=== PATIENT | female | born 1985 | race American Indian/Alaskan Native ===

== ENCOUNTER 2017-12-26 20:57 | Emergency (ER) | payer SELFPAY ==
[2017-12-26 21:13] VITALS: BP 112/73
--- NOTE | 2017-12-26 21:44 | Emergency Department Report ---
ED ENT HPI - General Chief complaint: Sore Throat Stated complaint: SWOLLEN THROAT PAIN, BURING Time Seen by Provider: 12/26/17 21:36 Source: patient Mode of arrival: Ambulatory Limitations: No Limitations - History of Present Illness Initial comments: 32-year-old female past medical history none presents with complaint of sore throat for 2 days. Patient has visible plaques in back of throat. Speaking in full sentences no trismus no drooling no shortness of breath. Slight nonproductive cough. Patient is fully lucid awake alert and oriented 3 nontoxic appearing. MD complaint: sore throat Onset/Timin -: days(s) Location: throat Severity: moderate Quality: aching Worsens with: none Associated Symptoms: sore throat - Related Data Previous Rx's Medication Instructions Recorded Last Taken Type Clindamycin [Clindamycin CAP] 300 mg PO Q6H #28 capsule 12/26/17 Unknown Rx Dextromethorphan/Benzocaine 1 each PO Q4H PRN #1 box 12/26/17 Unknown Rx [Cepacol Sorethroat-Cough Eusebio] Ibuprofen [Motrin] 600 mg PO Q8H PRN #20 tablet 12/26/17 Unknown Rx Allergies Allergy/AdvReac Type Severity Reaction Status Date / Time Penicillins Allergy Hives Verified 12/26/17 21:13 ED Dental HPI - General Chief complaint: Sore Throat Stated complaint: SWOLLEN THROAT PAIN, BURING Time Seen by Provider: 12/26/17 21:36 Source: patient Mode of arrival: Ambulatory Limitations: No Limitations - Related Data Previous Rx's Medication Instructions Recorded Last Taken Type Clindamycin [Clindamycin CAP] 300 mg PO Q6H #28 capsule 12/26/17 Unknown Rx Dextromethorphan/Benzocaine 1 each PO Q4H PRN #1 box 12/26/17 Unknown Rx [Cepacol Sorethroat-Cough Eusebio] Ibuprofen [Motrin] 600 mg PO Q8H PRN #20 tablet 12/26/17 Unknown Rx Allergies Allergy/AdvReac Type Severity Reaction Status Date / Time Penicillins Allergy Hives Verified 12/26/17 21:13 ED Review of Systems ROS: Stated complaint: SWOLLEN THROAT PAIN, BURING Other details as noted in HPI Constitutional: denies: chills, fever Eyes: denies: eye pain, eye discharge, vision change ENT: throat pain. denies: ear pain Respiratory: denies: cough, shortness of breath, wheezing Cardiovascular: denies: chest pain, palpitations Endocrine: no symptoms reported Gastrointestinal: denies: abdominal pain, nausea, diarrhea Genitourinary: denies: urgency, dysuria, discharge Musculoskeletal: denies: back pain, joint swelling, arthralgia Skin: denies: rash, lesions Neurological: denies: headache, weakness, paresthesias Psychiatric: denies: anxiety, depression Hematological/Lymphatic: denies: easy bleeding, easy bruising ED Past Medical Hx - Past Medical History Previous Medical History?: No - Surgical History Past Surgical History?: No - Social History Smoking Status: Never Smoker Substance Use Type: None - Medications Home Medications: Home Medications Medication Instructions Recorded Confirmed Last Taken Type Clindamycin [Clindamycin CAP] 300 mg PO Q6H #28 capsule 12/26/17 Unknown Rx Dextromethorphan/Benzocaine 1 each PO Q4H PRN #1 box 12/26/17 Unknown Rx [Cepacol Sorethroat-Cough Eusebio] Ibuprofen [Motrin] 600 mg PO Q8H PRN #20 tablet 12/26/17 Unknown Rx ED Physical Exam - General Limitations: No Limitations General appearance: alert, in no apparent distress - Head Head exam: Present: atraumatic, normocephalic - Eye Eye exam: Present: normal appearance, PERRL, EOMI - ENT ENT exam: Present: mucous membranes moist - Expanded ENT Exam Expanded Throat exam: Positive: tonsillar erythema, tonsillar exudate - Neck Neck exam: Present: normal inspection - Respiratory Respiratory exam: Present: normal lung sounds bilaterally. Absent: respiratory distress - Cardiovascular Cardiovascular Exam: Present: regular rate, normal rhythm. Absent: systolic murmur, diastolic murmur, rubs, gallop - GI/Abdominal GI/Abdominal exam: Present: soft, normal bowel sounds - Extremities Exam Extremities exam: Present: normal inspection - Back Exam Back exam: Present: normal inspection - Neurological Exam Neurological exam: Present: alert, oriented X3 - Psychiatric Psychiatric exam: Present: normal affect, normal mood - Skin Skin exam: Present: warm, dry, intact, normal color. Absent: rash ED Course Vital Signs 12/26/17 21:08 Temperature 99.9 F H Pulse Rate 86 Respiratory 16 Rate Blood Pressure 112/73 O2 Sat by Pulse 98 Oximetry ED Medical Decision Making - Medical Decision Making A/P: Tonsillitis 1-Motrin when necessary, throat lozenges when necessary 2-follow-up with primary care doctor 3- 4- Critical care attestation.: If time is entered above; I have spent that time in minutes in the direct care of this critically ill patient, excluding procedure time. ED Disposition Clinical Impression: Tonsillitis Disposition: TO HOME OR SELFCARE Is pt being admited?: No Does the pt Need Aspirin: No Condition: Stable Instructions: Tonsillitis (ED) Prescriptions: Clindamycin [Clindamycin CAP] 300 mg PO Q6H #28 capsule Dextromethorphan/Benzocaine [Cepacol Sorethroat-Cough Eusebio] 1 each PO Q4H PRN #1 box PRN Reason: Sore Throat Ibuprofen [Motrin] 600 mg PO Q8H PRN #20 tablet PRN Reason: Pain Referrals: PRIMARY CAREMD [Primary Care Provider] - 3-5 Days [facility] [Provider Group] - 3-5 Days Forms: Work/School Release Form(ED) Time of Disposition: 22:13
[2017-12-26] MEDS ORDERED: DECADRON IM ONE (22:15)
== END 2017-12-26 22:23 | disposition home or self-care (01) ==
LOC: ED 20:57
DX: J03.90 Acute tonsillitis, unspecified (principal); Z88.0 Allergy status to penicillin
CPT/HCPCS: 87116; 87430; 96372; 99282; J1100